=== PATIENT | female | born 1940 | race Caucasian/White ===

== ENCOUNTER → 2016-07-29 | Outpatient (CLI) | payer MEDICARE, OTHER ==
[~2016-07-29] MED LIST: ASPI-558 PO; ATEN-36 PO; MULT1CAP32 PO; NIAC250T19 PO; ROSU5TAB3 PO
[2016-07-29 11:42] LABS: BLOOD, URINE 2+ (NEGATIVE); COLOR,URINE YELLOW (YELLOW); LEUKOCYTE ESTERASE ,URINE NEGATIVE (NEGATIVE); NITRITE,URINE NEGATIVE (NEGATIVE); UROBILINOGEN,URINE 0.2 EU/DL (NORMAL)
[2016-07-29 12:16] LABS: BACTERIA,URINE TRACE (NEGATIVE); RBC,URINE 0-1 /HPF (0-3); SQUAMOUS EPITHELIAL CELL,UR NONE SEEN; WBC,URINE NONE SEEN /HPF (0-5)
== END ==
LOC: LABN 11:22
PROVIDERS: ATTEND Internal Medicine Hematology & Oncology
DX: R89.6 Abnormal cytological findings in specimens from other organs, systems and tissues (principal); Z85.51 Personal history of malignant neoplasm of bladder
CPT/HCPCS: 81001; 88312